=== PATIENT | female | born 1945 | race African-American/Black ===

== ENCOUNTER 2023-06-12 13:01 | Outpatient (REF) | payer MEDICARE, SELFPAY ==
[2023-06-12 15:51] LABS: Influenza A PCR NEGATIVE (Negative); Influenza B PCR NEGATIVE (Negative); Resp Syncy Virus RNA Qual PCR NEGATIVE (Negative); SARS COV2 PCR INHOUSE NEGATIVE (Negative)
== END 2023-06-12 13:02 | disposition home or self-care (01) ==
LOC: HO.CHCLNP 13:01
PROVIDERS: Visit Provider Pediatrics
DX: J45.20 Mild intermittent asthma, uncomplicated (principal); E78.5 Hyperlipidemia, unspecified; Z20.822 Contact with and (suspected) exposure to COVID-19
CPT/HCPCS: 0241U